=== PATIENT | male | born 1980 | race Hispanic/Latino ===

== ENCOUNTER 2022-12-10 09:19 | Emergency (ER) | payer OTHER ==
[~2022-12-10] VITALS: Ht 180.3 cm; Wt 117.9 kg
[2022-12-10] MEDS ORDERED: HYDROCODONE/APAP 5MG-325MG TAB PO ONE (09:45)
[2022-12-10] MEDS ORDERED: DEXAMETHASONE SOD PHOS INJ 4 MG/ML SDV IM ONE (09:45)
[2022-12-10] MEDS ORDERED: CYCLOBENZAPRINE HCL 10 MG TAB PO ONE (09:45)
[2022-12-10] MEDS: DEXAMETHASONE SOD PHOS INJ 4 MG/ML SDV IV ONE ×2 (09:51→09:54)
[2022-12-10] MEDS ORDERED: PREDNISONE20 MG PO (10:52)
[2022-12-10] MEDS ORDERED: CYCLOBENZAPRINE5 MG PO (10:52)
[2022-12-10] MEDS ORDERED: ULTRAM 50MG50 MG PO (10:52)
== END 2022-12-10 11:22 | disposition home or self-care (01) ==
LOC: FSED 09:28
DX: M54.41 Lumbago with sciatica, right side (principal); N50.819 Testicular pain, unspecified; F17.210 Nicotine dependence, cigarettes, uncomplicated
CPT/HCPCS: 74176; 81003; 99283; J1100